=== PATIENT | male | born 1985 | race Caucasian/White ===

== ENCOUNTER 2023-09-15 05:40 | Emergency (ER) | payer SELFPAY ==
[2023-09-15 06:55] VITALS: BP 107/59; PULSE 85; RESP 18; TEMP 36.3; O2SAT 99; BMI 21.7
== END 2023-09-15 09:50 | disposition left against medical advice (07) ==
PROVIDERS: Emergency Provider Emergency Medicine
DX: R68.84 Jaw pain (principal)
CPT/HCPCS: 99281

== ENCOUNTER 2024-04-06 07:26 | Emergency (ER) | payer OTHER, SELFPAY ==
[2024-04-06 07:35] VITALS: BP 131/67; PULSE 63; RESP 16; TEMP 36.2; O2SAT 95; BMI 23.7
[2024-04-06 07:37] VITALS: PULSE 79; O2SAT 98
--- NOTE | 2024-04-06 07:50 | ED.EXTPRO ---
HPI - Extremity Problem General Chief complaint: Extremity Problem,Nontraumatic Stated complaint: severe pain both feet Time Seen by Provider: 04/06/24 07:43 Source: patient Mode of arrival: Ambulatory History of Present Illness HPI Narrative: Patient here for bilateral plantar foot pain. Ongoing for the past week. Patient states he was given some work boots that had no soles in them. Patient works construction work. Patient has flat feet. Patient denies any history are intact strokes diabetes no heart valve disease. No IV drug use. Ankles and feet exposed Related Data Previous Rx's Medication Instructions Recorded famotidine 20 mg tablet 20 mg PO BID #14 tabs 04/06/24 ibuprofen 600 mg tablet 600 mg PO Q6H PRN fever or pain 04/06/24 #24 tabs methylprednisolone 4 mg tablets in See Rx Instructions PO .COMPLEX 04/06/24 a dose pack (Medrol (Jose)) #21 ea Allergies Allergy/AdvReac Type Severity Reaction Status Date / Time No Known Drug Allergies Allergy Verified 04/06/24 07:35 Review of Systems Review of Systems Narrative: GENERAL: Negative chills, fatigue, malaise, fever, sweats. HEENT: Negative sinus pain, ear pain, sore throat RESPIRATORY: Negative dyspnea, cough CARDIOVASCULAR: Negative chest pain, palpitations GASTROINTESTINAL: Negative nausea, vomiting, abdominal pain : Negative dysuria, frequency, hematuria MUSCULOSKELETAL: Positive muscle or bony pain SKIN: Negative rash, skin lesions NEUROLOGIC: Negative weakness, numbness ROS Unobtainable: All systems reviewed & are unremarkable except as noted in HPI and below Patient History Social History Smoking Status: Current every day smoker Smoking Status: Current every day smoker Exam Narrative Exam Narrative: GENERAL: in no distress, not toxic not dyspneic HEAD: Normocephalic. EYES: Pupils equal round EXTREMITIES: No gross deformities. Bilateral ankles and feet exposed. She was in socks removed. Feet are warm soft pink strong pedal pulses. No cellulitis vesicles or lesions. No erythema or induration. Wiggles toes bilaterally. Brisk cap refills. No crepitus. No signs of frostbite. Toenails are intact. There is reproducible tenderness at the plantar surfaces bilaterally at the arch of each foot. NEURO: AOx4. SKIN: Warm and dry PSYCH: Not anxious, is cooperative Initial Vital Signs Initial Vital Signs: Vital Signs Temperature 97.1 F L 04/06/24 07:35 Pulse Rate 63 04/06/24 07:35 Respiratory Rate 16 04/06/24 07:35 Blood Pressure 131/67 04/06/24 07:35 Pulse Oximetry 95 04/06/24 07:35 Oxygen Delivery Method Room Air 04/06/24 07:35 Course Orders Ordered: Discontinued Medications Ketorolac Tromethamine (Ketorolac 30 Mg/Ml Vial) 30 mg IM NOW ONE Stop: 04/06/24 07:50 Last Admin: 04/06/24 08:17 Dose: 30 mg Documented By: JB Prednisone (Prednisone 20 Mg Tablet) 40 mg PO NOW ONE Stop: 04/06/24 07:50 Last Admin: 04/06/24 08:17 Dose: 40 mg Documented By: JB Vital Signs Vital signs: Vital Signs - 8 hr 04/06/24 07:35 04/06/24 07:37 Temperature 97.1 F L Pulse Rate 63 79 Respiratory Rate 16 Blood Pressure 131/67 Pulse Oximetry 95 98 Oxygen Delivery Method Room Air MDM - Extremity (Nontraumatic) Imaging Data Extremity x-ray #1: Radiologist's Impression: [address] [address] XRay Report Signed Patient: Robbie Gong MR#: [id number] : 1985 Acct:[id number] Age/Sex: 38 / M Date of Service: 04/06/24 Loc: ED Accession Number: [id number] Procedure: XR foot LT min 3V Ordering Provider: Jovany Yen MD PROCEDURE: XR FOOT LT MIN 3V INDICATIONS: Pain TECHNIQUE: 3 views of the foot were acquired. COMPARISON: None. FINDINGS: Bones: No fractures or dislocations. No suspicious bony lesions. Soft tissues: No tibiotalar joint effusion. Achilles tendon appears normal. IMPRESSION: No acute bony abnormality. Dictated by: Terell England M.D. on 04/06/2024 at 8:16 Approved by: Terell England M.D. on 04/06/2024 at 8:17 Extremity x-ray #2: Radiologist's Impression: [address] [address] XRay Report Signed Patient: Robbie Gong MR#: [id number] : 1985 Acct:[id number] Age/Sex: 38 / M Date of Service: 04/06/24 Loc: ED Accession Number: [id number] Procedure: XR foot RT min 3V Ordering Provider: Jovany Yen MD PROCEDURE: XR FOOT RT MIN 3V INDICATIONS: Pain TECHNIQUE: 3 views of the foot were acquired. COMPARISON: None. FINDINGS: Bones: No fractures or dislocations. No suspicious bony lesions. Soft tissues: No tibiotalar joint effusion. Achilles tendon appears normal. IMPRESSION: No acute bony abnormality. Dictated by: Terell England M.D. on 04/06/2024 at 8:33 Approved by: Terell England M.D. on 04/06/2024 at 8:39 [facility] Narrative Medical decision making narrative: Patient here for bilateral plantar foot pain. Ongoing for the past week. Patient states he was given some work boots that had no soles in them. Patient works construction work. Patient has flat feet. Patient denies any history are intact strokes diabetes no heart valve disease. No IV drug use. Ankles and feet exposed After history and exam, Toradol prednisone x-ray bilateral feet ordered. Exam is reassuring. No blood work indicated. [facility] Medical records reviewed: No recent visit for this complaint Differential considered: Includes but not limited to plantar fasciitis foot sprain but strain foot fracture cellulitis Imaging studies independently reviewed: X-ray bilateral feet no acute finding Treatments: Toradol prednisone Re-evaluations: 8:48 a.m.. Patient is sleeping. Awoke patient and Reviewed with patient results. Patient needs arch support for his new boots as well. I did look inside his boots. Pain controlled. Return precautions reviewed. He desires discharge home. Discussion: Appropriate for discharge home exam is reassuring. No blurry indicated. Clinically patient has plantar fasciitis. Podiatry referral provided. Anti-inflammatory management appropriate outpatient. Diagnosis: Plantar fasciitis Discharge Plan Departure Patient Disposition: Home Clinical Impression: Plantar fasciitis, bilateral Instructions: DI for Plantar Fasciitis Activity Restrictions/Additional Instructions: Please call provided podiatry office today for follow up regarding your feet pain. Please use arch support for your shoe wear. This will help for plantar fasciitis. Prescriptions have been provided for you. Return if worse if any questions or concerns. Work note has been provided for you as well. Prescriptions: New famotidine 20 mg tablet 20 mg PO BID Qty: 14 0RF ibuprofen 600 mg tablet 600 mg PO Q6H PRN (Reason: fever or pain) Qty: 24 0RF methylprednisolone [Medrol (Jose)] 4 mg tablets,dose pack See Rx Instructions .ROUTE .COMPLEX Qty: 21 0RF Rx Instructions: orally per package directions Referrals: Andreina Bright DPM [Physician] - Stand Alone Forms: Patient Portal/API/Survey, Work Release Note
[2024-04-06] MEDS: KETOROLAC 30 MG/ML VIAL IM (08:17)
[2024-04-06] MEDS: predniSONE 20 MG TABLET 40 MG PO (08:17)
--- NOTE | 2024-04-06 09:10 | PC.NURSE ---
D/c instructions provided to pt at 0850, pt continues to sleep on stretcher, RN explained to pt he discharged from ED and is free to leave. Pt began to collect his things. At 0910 pt was tying shoes and began shouting and making threatening statements in room, RN asked pt who he was talking to, pt replies with You, bitch! RN called security requesting presence. Charge nurse present. Pt then exited ED.
== END 2024-04-06 09:10 | disposition home or self-care (01) ==
PROVIDERS: Emergency Provider Emergency Medicine
DX: M72.2 Plantar fascial fibromatosis (principal)
CPT/HCPCS: 73630; 96372; 99283; J1885

== ENCOUNTER 2024-09-06 02:17 | Emergency (ER) | payer OTHER, SELFPAY ==
[2024-09-06 02:46] VITALS: BP 129/75; PULSE 85; RESP 16; TEMP 36.1; O2SAT 100; BMI 23.0
--- NOTE | 2024-09-06 03:11 | ED.NECK ---
HPI - Neck Pain/Injury General Chief Complaint: Neck Pain/Injury Stated Complaint: Neck pain, C4, C5 bulged disks Time Seen by Provider: 09/06/24 02:54 Mode of arrival: Ambulatory History of Present Illness HPI Narrative: 38-year-old male reports history of cervical spine bulging disc, seemed to get better after physical therapy, previously was taking gabapentin that he thought was helpful, now has upper mid back discomfort, sleeping in his car, no specific injury recalled. No numbness or weakness to lower extremities. Previous neck pain seemed to be improved. No paresthesias to right or left upper extremity. Related Data Previous Rx's ?Medication ?Instructions ?Recorded famotidine 20 mg tablet 20 mg PO BID #14 tabs 04/06/24 ibuprofen 600 mg tablet 600 mg PO Q6H PRN fever or pain 04/06/24 #24 tabs methylprednisolone 4 mg tablets in See Rx Instructions PO .COMPLEX 04/06/24 a dose pack (Medrol (Jose)) #21 ea methocarbamol 500 mg tablet 500 mg PO TID 7 days #21 tabs 09/06/24 Allergies Allergy/AdvReac Type Severity Reaction Status Date / Time No Known Drug Allergies Allergy Verified 09/06/24 02:46 Patient History Social History Smoking Status: Current every day smoker Smoking Status: Current every day smoker Exam Narrative Exam Narrative: GENERAL: Well-developed patient, in mild distress. HEAD: Atraumatic. Normocephalic. EYES: Pupils equal round and reactive. Extraocular motions intact. No scleral icterus. No injection or drainage. ENT: Nose without bleeding, purulent drainage. Throat without erythema, tonsillar hypertrophy or exudate. Airway patent. NECK: Trachea midline. Non tender CARDIOVASCULAR: Regular rate and rhythm without murmurs, gallops, or rubs. RESPIRATORY: Clear to auscultation. Breath sounds equal bilaterally. No wheezes, rales, or rhonchi. GASTROINTESTINAL: Abdomen soft, non-tender, nondistended. EXTREMITIES: No edema or joint tenderness. BACK: Nontender without deformity or crepitance. No flank tenderness. NEURO: AOx3. Motor functions grossly nonfocal. SKIN: No rash or erythema of visible areas Initial Vital Signs Initial Vital Signs: Vital Signs Temperature 97.0 F L 09/06/24 02:46 Pulse Rate 85 09/06/24 02:46 Respiratory Rate 16 09/06/24 02:46 Blood Pressure 129/75 09/06/24 02:46 Pulse Oximetry 100 09/06/24 02:46 Oxygen Delivery Method Room Air 09/06/24 02:46 Course Orders Ordered: Discontinued Medications Methocarbamol (Methocarbamol 500 Mg Tablet) 500 mg PO NOW ONE Stop: 09/06/24 03:20 Last Admin: 09/06/24 03:22 Dose: 500 mg Documented By: RAVINDER Vital Signs Vital signs: Vital Signs - 8 hr 09/06/24 02:46 Temperature 97.0 F L Pulse Rate 85 Respiratory Rate 16 Blood Pressure 129/75 Pulse Oximetry 100 Oxygen Delivery Method Room Air MDM - Neck Pain/Injury MDM Narrative Medical decision making narrative: 38-year-old male with history of previous cervical disc related pain that seemed to get better with physical therapy and previous gabapentin, now complains of upper midthoracic discomfort, no injury or trauma. Unremarkable neuro exam. Some mild tenderness paraspinous muscles upper thoracic. No skin changes/vesicles. We discussed imaging, hold for now. Trial of muscle relaxant, patient interested. Patient given 1st dose of methocarbamol, prescription for further course to use if needed. Patient is planned to follow up with his sports medicine provider tomorrow in clinic. Return earlier to this/nearest emergency department for any change worsening symptoms or any concerns prior. Discharge Plan Departure Patient Disposition: Home Clinical Impression: Thoracic back pain Activity Restrictions/Additional Instructions: Previous cervical bulging disc that was apparently responsive to prior supply of gabapentin, and also physical therapy type exercises. Now with upper thoracic area back pain. Some tenderness paraspinal upper thoracic musculature. Trial of muscle relaxant. Methocarbamol muscle relaxant dose given in the emergency department, prescription sent to your pharmacy. Follow up with your sports medicine provider later today as scheduled. Return to this/nearest emergency department for any change worsening symptoms or any concerns prior. Prescriptions: New methocarbamol 500 mg tablet 500 mg PO TID 7 Days Qty: 21 0RF No Action famotidine 20 mg tablet 20 mg PO BID Qty: 14 0RF ibuprofen 600 mg tablet 600 mg PO Q6H PRN (Reason: fever or pain) Qty: 24 0RF methylprednisolone [Medrol (Jose)] 4 mg tablets,dose pack See Rx Instructions .ROUTE .COMPLEX Qty: 21 0RF Rx Instructions: orally per package directions Stand Alone Forms: Patient Portal/API
[2024-09-06] MEDS: methocarbamoL 500 MG TABLET PO (03:22)
== END 2024-09-06 03:28 | disposition home or self-care (01) ==
PROVIDERS: Emergency Provider Emergency Medicine
DX: M54.6 Pain in thoracic spine (principal)
CPT/HCPCS: 99283